=== PATIENT | male | born 1960 | race Caucasian/White ===

== ENCOUNTER → 2019-12-12 11:16 | Outpatient (CLI) | payer BC, SELFPAY ==
--- NOTE | ~2019-12-12 | XR_ITS ---
EXAMINATION: XR lumbar spine 2-3V DATE: 12/12/2019 11:36 INDICATION: Low back pain TECHNIQUE: Anteroposterior and lateral views of the lumbar spine, and cone-down lateral view of the l umbosacral junction were obtained. COMPARISON: 03/28/2017 FINDINGS: There are 3 mm of chronic retrolisthesis of L3 on L4 and 2 mm of chronic retrolisthesis of L4 on L5. There is mild loss of intervertebral disc space height at L5-S1. The vertebral body heights are normal. Small degenerative osteophytes project from the anterior endplates of multiple vertebral bodies. There is no fracture. Moderate facet osteoarthritis is noted at L5-S1. The bowel gas pattern is normal. A moderate volume of colonic stool is present. IMPRESSION: 1. Mild lumbar spondylosis without acute findings or significant interval change. Reviewed, dictated and finalized at location A. TIC PHYSIOTHERAPIST IMPRESSION: 1. Mild lumbar spondylosis without acute findings or significant interval renata corcoran
== END ==
PROVIDERS: PCP Family Medicine; Visit Provider Physician Assistant
DX: M47.896 Other spondylosis, lumbar region (principal)
CPT/HCPCS: 72100

== ENCOUNTER → 2020-07-30 16:29 | Outpatient (CLI) | payer BC, SELFPAY ==
--- NOTE | ~2020-07-30 | XR_ITS ---
EXAMINATION: XR thoracic spine 3V DATE: 07/30/2020 16:54 INDICATION: Dorsalgia, unspecified. TECHNIQUE: 3 views of thoracic spine were obtained. COMPARISON: CT abdomen and pelvis 02/24/2019 FINDINGS: There is 13 degrees levoscoliosis of upper thoracic spine and 10 degrees dextroscoliosis of lower thoracic spine. Vertebral body heights are normal. There are changes of anterior fusion proced ure in cervical spine. There are endplate osteophytes at multiple levels in thoracic spine. Intervert ebral disc heights are normal in thoracic spine. IMPRESSION: 1. Mild thoracic spondylosis. 2. Scoliosis. Reviewed, dictated and finalized at location A.
== END ==
PROVIDERS: PCP Family Medicine; Visit Provider Physician Assistant
DX: M54.9 Dorsalgia, unspecified (principal); M47.814 Spondylosis without myelopathy or radiculopathy, thoracic region; M41.84 Other forms of scoliosis, thoracic region
CPT/HCPCS: 72072

== ENCOUNTER 2020-08-10 12:00 | Emergency (ER) | payer BC, SELFPAY ==
--- NOTE | 2020-08-10 12:31 | ED.BACK ---
HPI - Back Pain/Injury General Chief Complaint: Back Pain/Injury Stated Complaint: back pain Time Seen by Provider: 08/10/20 12:12 History of Present Illness HPI Narrative: Chronic back pain. Worse fr the past few days. Started on prednisone taper by PCP without significnat improvement. Scheduled for MRI i 2 days. Came in today because he had severe pain when tying his shoes. The pain is on the left side at the level of the lower ribs and radiating around to the abdomen. No nausea, vomiting, dysuria, hematuria. Related Data Home Medications Medication Instructions Recorded Confirmed aspirin 81 mg tablet,delayed 81 mg PO DAILY 09/26/19 07/28/20 release cetirizine 10 mg tablet 10 mg PO DAILY 09/26/19 07/28/20 famotidine 20 mg tablet 20 mg PO DAILY 09/26/19 07/28/20 multivitamin 1 tablet PO DAILY 09/26/19 07/28/20 naproxen sodium 220 mg tablet 220 mg PO TID PRN tablet 09/26/19 07/28/20 omega 8-cyq-lia-fish oil 1,000 mg 1 cap PO DAILY 09/26/19 07/28/20 (120 mg-180 mg) capsule Allergies Allergy/AdvReac Type Severity Reaction Status Date / Time Sulfa (Sulfonamide Allergy Unknown Unknown Verified 08/10/20 12:39 Antibiotics) Review of Systems Review of Systems: All systems reviewed & are unremarkable except as noted in HPI and below Constitutional: Constitutional: Denies chills, Denies fever(s) and Denies weakness Cardiovascular: Cardiovascular: Denies chest pain Respiratory: Respiratory: Denies dyspnea Genitourinary: Genitourinary: Denies hematuria and Denies dysuria Musculoskeletal: Musculoskeletal: Reports back pain Neurologic: Denies numbness and Denies weakness [facility] Past Medical History Medical History Crush injury of foot (~1977) Surgical History Surgical History History of arthroscopy (~1996) History of fusion of cervical spine (~1996) History of hemorrhoidectomy (~1999) Family History Family History Sibling Hypertension Father Family history of cardiovascular disease Grandparent Acute myocardial infarction Family history of malignant neoplasm of stomach Mother Family history of malignant neoplasm Family history of pancreatic cancer Social History Social History Smoking status: Never smoker Alcohol intake: current Exam Const: General: no acute distress and alert Orientation/consciousness: patient oriented x3 HENMT: Head: normal to inspection Chest: Chest palpation & inspection: normal inspection of the chest and no tenderness Resp: Effort & Inspection: normal respiratory effort Auscultation: clear to auscultation bilaterally Cardio: Rate: regular rate Rhythm: regular rhythm GI: Other: NDNT : General: Yes no CVA tenderness Back/Spine/Pelvis: Other: No tenderness Neuro: General: patient oriented x3, moves all extremities, no focal motor deficits and CN's II-XI intact bilaterally Speech: normal speech Gait exam (Neuro): Normal gait present Extrem: General: normal to inspection Course Vital Signs Vital signs: Vital Signs Temperature 36.3 C L 08/10/20 12:37 Pulse Rate 75 08/10/20 12:37 Respiratory Rate 20 08/10/20 12:37 Blood Pressure 141/74 H 08/10/20 12:37 Pulse Oximetry 99 08/10/20 12:37 Temperature 36.3 C L 08/10/20 12:37 Pulse Rate 80 08/10/20 13:36 Respiratory Rate 18 08/10/20 13:36 Blood Pressure 122/80 08/10/20 13:36 Pulse Oximetry 99 08/10/20 13:36 MDM - Back Pain/Injury MDM Narrative Medical decision making narrative: Pain consistent with radiculopathy. No indication for emergent imaging. UA negative. Will provide medication for symptomatic relief until he gets his MRI in 2 days. Medical Records Attestation: I reviewed the patient's medical records. Lab Data Attestation:
[2020-08-10 12:37] VITALS: BP 141/74; PULSE 75; RESP 20; TEMP 36.3; O2SAT 99
[2020-08-10] MEDS: CYCLOBENZAPRINE HCL 10 MG TABLET PO (12:37)
[2020-08-10] MEDS: HYDROcodone/acetaminophen (*CRX) 5-325 MG TABLET 1 TAB PO (12:37)
[2020-08-10 12:55] LABS: Add Urine Microscopic? YES; Appearance Urine Clear (Clear); Bilirubin Urine Negative (Negative); Blood Urine Negative (Negative); Color Urine Yellow (Yellow); Glucose Urine UA Negative (Negative); Ketones Urine Negative (Negative); Leukocyte Esterase Ur Negative LEU/UL (Negative); Nitrate Urine Negative (Negative); Protein Urine Negative (Negative); RBC Urine 0-2 /hpf (0-2); Specific Grav Ur 1.012 (1.001-1.035); Urobilinogen Urine Negative mg/dL (<2.0); WBC Urine 0-3 /hpf
[2020-08-10 13:36] VITALS: BP 122/80; PULSE 80; RESP 18; O2SAT 99
== END 2020-08-10 13:37 | disposition home or self-care (01) ==
PROVIDERS: Emergency Provider Emergency Medicine; PCP Family Medicine
DX: M54.6 Pain in thoracic spine (principal); G89.29 Other chronic pain; Z98.1 Arthrodesis status; Z79.82 Long term (current) use of aspirin
CPT/HCPCS: 81001; 99283; A9270

== ENCOUNTER 2020-08-12 14:37 | Outpatient (CLI) | payer BC, SELFPAY ==
--- NOTE | ~2020-08-12 | MR_ITS ---
EXAMINATION: MR thoracic spine wo con DATE: 08/12/2020 15:52 INDICATION: Thoracic back pain. TECHNIQUE: Magnetic resonance imaging (MRI) of the thoracic spine was performed without intravenous c ontrast. Sagittal localizer T1-weighted FSE of the cervical spine was obtained. Thoracic spine sequen pernell included sagittal T2-weighted FSE, sagittal T1-weighted FSE, sagittal T2-weighted FS FSE, and axi al T2-weighted FSE. COMPARISON: Thoracic spine radiographs 07/30/2020 FINDINGS: There is 10 degrees dextroscoliosis of thoracic spine. Vertebral body heights are normal. T here is mildly decreased disc height at T5-T6, T9-T10, T10-T11, and T11-T12. At T2-T3, there is a ezra tral extrusion with mild central canal stenosis. At T3-T4, there is a central extrusion with mild ezra tral canal stenosis. At T5-T6, there is a left central extrusion with mild central canal stenosis. At T7-T8, there is a left central extrusion with mild central canal stenosis. At T8-T9, there is a left central protrusion with mild central canal stenosis. At T9-T10, there is a left central and foramina l zone protrusion with mild central canal stenosis. At T10-T11, there is a left central extrusion wit h mild central canal stenosis. There is multilevel facet joint osteoarthritis, severe at many levels. On the right, there is mild neural foraminal stenosis at T1-T2, T2-T3, T3-T4, T4-T5, T5-T6, T6-T7, a nd T11-T12. On the left, there is mild neural foraminal stenosis at T1-T2, T2-T3, T3-T4, T5-T6, T6-T7 , T7-T8, T8-T9, T9-T10, T10-T11, and T11-T12. The spinal cord signal intensity is normal. IMPRESSION: 1. Mild thoracic spondylosis. 2. Thoracic dextroscoliosis. Reviewed, dictated and finalized at location A.
== END 2020-08-12 14:38 | disposition home or self-care (01) ==
PROVIDERS: PCP Family Medicine; Visit Provider Physician Assistant
DX: M47.894 Other spondylosis, thoracic region (principal)
CPT/HCPCS: 72146

== ENCOUNTER → 2022-04-14 08:40 | Outpatient (CLI) | payer BC, SELFPAY ==
--- NOTE | ~2022-04-14 | MR_ITS ---
EXAMINATION: MR lumbar spine wo con DATE: 04/14/2022 09:13 INDICATION: Lumbar radiculopathy. Low back pain. Bilateral leg pain. TECHNIQUE: Magnetic resonance imaging (MRI) of the lumbar spine was performed without intravenous con trast. Sequences included sagittal T2-weighted FSE, sagittal T2-weighted FS FSE, sagittal T1-weighted FSE, and axial T2-weighted FSE. COMPARISON: Lumbar spine radiographs 12/12/2019 FINDINGS: There is 4 mm retrolisthesis of L3 on L4. Vertebral body heights are normal. There is mildl y decreased disc height at L3-L4 and L4-L5. The distal spinal cord signal intensity is normal. The co nus medullaris is at L1. The following disc levels are specifically discussed: L1-L2: The disc does not extend beyond the endplate margin. There is mild bilateral facet joint osteo arthritis. There is no neural foraminal stenosis. There is no central canal stenosis. L2-L3: There is a right foraminal protrusion. There is mild bilateral facet joint osteoarthritis. The re is mild right neural foraminal stenosis. There is no central canal stenosis. L3-L4: The disc is bulging and has an annular fissure. There is mild bilateral facet joint osteoarthr itis. There is moderate bilateral neural foraminal stenosis. There is mild central canal stenosis. Th ere is moderate stenosis of the lateral recesses. L4-L5: The disc is bulging. There is mild bilateral facet joint osteoarthritis. There is moderate ivon ateral neural foraminal stenosis. There is mild central canal stenosis. L5-S1: The disc is bulging and has an annular fissure. There is severe bilateral facet joint osteoart hritis. There is moderate bilateral neural foraminal stenosis. There is mild central canal stenosis. IMPRESSION: 1. Moderate lumbar spondylosis. Reviewed, dictated and finalized at location A.
== END ==
PROVIDERS: PCP Family Medicine; Visit Provider Physician Assistant
DX: M47.817 Spondylosis without myelopathy or radiculopathy, lumbosacral region (principal); M48.07 Spinal stenosis, lumbosacral region
CPT/HCPCS: 72148

== ENCOUNTER → 2022-08-01 15:12 | Outpatient (CLI) | payer BC, SELFPAY ==
--- NOTE | ~2022-08-01 | CT_ITS ---
EXAMINATION: CT abdomen pelvis w con DATE: 08/01/2022 15:39 INDICATION: Abdominal and rectal pain, change in bowel movements. Constipation. TECHNIQUE: Computed tomography (CT) of the abdomen and pelvis was performed with 100 CC Omnipaque 350 intravenous contrast. Automated exposure control and iterative reconstruction technique were employe d. Exam dose: 627.54 mGy-cm total exam DLP. COMPARISON: 02/24/2019 CT abdomen pelvis FINDINGS: The lung bases are clear of infiltrate or consolidation. Normal heart size. No pericardial or pleural effusion. Stable subtle small area of hypoattenuation of the hepatic dome, not significantly changed since 02/24, likely a small cyst, but too small to definitively characterize. No other hepatic space-occupy ing mass lesion is detected. Spleen measures within upper normal range at approximately 12.5 cm vertical dimension. No pancreatic mass lesion or calcification or ductal dilatation. The gallbladder is contracted. No bile duct dilatation. Normal morphology of the adrenal glands. No renal mass lesion or urinary tract calculus or hydrourete ronephrosis. The urinary bladder is unremarkable. Prostate enlargement and minimal calcification. There is atherosclerotic calcification but normal caliber of the abdominal aorta. No intraperitoneal or retroperitoneal or pelvic mass lesion or adenopathy or ascites. No bowel obstruction, bowel wall thickening, pneumatosis or intraperitoneal free air is detected. Very small fat-containing umbilical hernia. Included skeletal structures are unremarkable, without evidence of suspicious osteolytic or osteoblas tic lesion. IMPRESSION: Prostate enlargement and minimal calcification Stable small probable hepatic dome cyst Atherosclerotic change of the abdominal aorta and iliac arteries; no aneurysm Reviewed, dictated and finalized at Location A. Reviewed, dictated and finalized at location B.
[2022-08-01 15:29] LABS: Estimated Glomerular Filt Rate > 60
== END ==
PROVIDERS: PCP Family Medicine; Visit Provider Physician Assistant
DX: R10.9 Unspecified abdominal pain (principal); K62.89 Other specified diseases of anus and rectum; N40.0 Benign prostatic hyperplasia without lower urinary tract symptoms; I70.0 Atherosclerosis of aorta
CPT/HCPCS: 74177; Q9967

== ENCOUNTER → 2023-05-09 08:48 | Outpatient (CLI) | payer MEDICARE, SELFPAY ==
--- NOTE | ~2023-05-09 | US_ITS ---
Abdominal Sonogram: Real-time sonographic imaging of the abdomen was performed. Clinical History: Abdominal pain Findings: The liver appears normal with no evidence of mass lesion or bile duct dilatation. Main por catarina vein demonstrates normal direction of flow. The spleen is normal in size without evidence of foca l lesion. The gallbladder is well distended, and appears normal with no evidence of gallstone or wal l thickening. The common bile duct measures 3 mm. The visualized pancreas, aorta, and IVC are unrema rkable. The right kidney measures 10.9 cm in length and the left kidney measures 11.9 cm. There is no hydronephrosis or renal calculus. Impression: Unremarkable abdominal ultrasound. Reviewed, dictated and finalized at location . Impression: Unremarkable abdominal ultrasound.
== END ==
PROVIDERS: PCP Family Medicine; Visit Provider Nurse Practitioner Family
DX: R10.9 Unspecified abdominal pain (principal); K21.9 Gastro-esophageal reflux disease without esophagitis; R10.811 Right upper quadrant abdominal tenderness
CPT/HCPCS: 76700

== ENCOUNTER 2023-07-19 03:08 | Day surgery (SDC) | payer MEDICARE, SELFPAY ==
[2023-07-06 09:43] VITALS: BMI 22.4
[2023-07-19 07:41] VITALS: BP 120/69; PULSE 60; RESP 18; TEMP 36.2; O2SAT 100
[2023-07-19] MEDS: LACTATED RINGERS 1,000 ML 150 ML IV CONT (07:49)
--- NOTE | 2023-07-19 08:21 | PM.HPGS ---
History of Present Illness History of Present Illness Consent: Risks, benefits, and alternatives have been discussed and questions answered. Patient agrees to proceed with procedure. Chief complaint: GERD, abdom.pain, nausea Narrative: Jb Yoo is a 63 year old male Presents for EGD. Patient complains of nausea and epigastric discomfort for the last several months. He has been on omeprazole 40mg p.o. daily with no specific change in symptoms. He does feel bowel bill is a erupting from his stomach into his chest. Patient denies any bleeding. He has had no weight loss. Family history noncontributory. Patient presents today for EGD to assess discomfort more thoroughly. Review of Systems Review of Systems: Review of systems noncontributory. [facility] Past Medical History Medical History Abdominal pain 6.28.23 US normal EGD pending 9.7.23 Central retinal artery occlusion, unspecified eye Crush injury of foot (~1977) Knee pain, acute Rectal pain Seborrheic keratoses Stricture of artery Tendonitis of shoulder Surgical History Surgical History History of arthroscopy (~1996) History of fusion of cervical spine (~1996) History of hemorrhoidectomy (~1999) Family History Family History Sibling Hypertension Father Family history of cardiovascular disease Grandparent Acute myocardial infarction Family history of malignant neoplasm of stomach Mother Family history of malignant neoplasm Family history of pancreatic cancer Social History Social History Smoking status: Never smoker Alcohol intake: current Drinks per week: 6 Substance use: never Substance use type: does not use Lack of Transportation: No Lack of Food: Never True Current Housing: I Have Housing Concerned About Future Housing: No Difficulty Paying Gas/Electric Bills: No Difficulty Paying for Meds: No Currently Unemployed: No Education: Associate Degree Difficulty w/ Childcare or Family Care: No Living arrangements: with family Spiritual care concerns: No Meds Home Medications and Allergies Home Medications Medication Instructions Recorded Confirmed Type aspirin 81 mg tablet,delayed 81 mg PO DAILY 09/26/19 07/06/23 History release multivitamin 1 tablet PO DAILY 09/26/19 07/06/23 History omega 3-pzg-ljw-fish oil 1,000 mg 1 cap PO DAILY 09/26/19 07/06/23 History (120 mg-180 mg) capsule (Fish Oil) mecobalamin (vitamin B12) 1,000 1,000 mcg PO DAILY 05/23/21 07/06/23 History mcg chewable tablet finasteride 5 mg tablet 5 mg PO DAILY #90 tabs 07/06/22 07/06/23 Rx tamsulosin 0.4 mg capsule See Rx Instructions .Route 04/16/23 07/06/23 Rx .COMPLEX #180 caps atorvastatin 10 mg tablet See Rx Instructions .Route 05/23/23 07/06/23 Rx .COMPLEX #90 tabs omeprazole 40 mg capsule,delayed See Rx Instructions .Route 06/12/23 07/06/23 Rx release .COMPLEX #90 caps Calcium + Vitamin D 1,200 mg PO DAILY 07/06/23 07/06/23 History magnesium oxide 400 mg PO DAILY 07/06/23 07/06/23 History Allergies Allergy/AdvReac Type Severity Reaction Status Date / Time Sulfa (Sulfonamide Allergy Unknown Unknown Verified 07/19/23 07:40 Antibiotics) Vital Signs Vital Signs - 24 hr 07/19/23 07:41 Temperature 97.2 F L Pulse Rate 60 Respiratory Rate 18 Blood Pressure 120/69 Pulse Oximetry 100 Oxygen Delivery Room Air Exam Narrative: Physical exam reveals patient to be alert. Vital signs stable. HEENT exam is unremarkable. Patient is anicteric. Lungs are clear to auscultation and percussion. Heart is without murmur or extra sounds. Abdomen bowel sounds are present soft nontender with no hepatosplenomegaly. Digital external rectal exam normal. Assessment and Plan Assess
--- NOTE | 2023-07-19 09:10 | WPDANESEPPF ---
Anes - Initial Pre Proc Eval Procedure: Operation Date: 07/19/23 09:00 Proposed Procedures p Esophagogastroduodenoscopy - Jamel Temple MD Date/Time: 07/19/23 09:10 Surgeon: Jamel Temple MD Pre Op Diagnosis: GERD, abdom.pain, nausea Patient Data Age: 63 Gender: M Height: 1.85 m Weight: 75.8 kg Last Vital Signs Temp 97.2 F L 07/19/23 07:41 Pulse 60 07/19/23 07:41 Resp 18 07/19/23 07:41 BP 120/69 07/19/23 07:41 Pulse Ox 100 07/19/23 07:41 O2 Del Method Room Air 07/19/23 07:41 Allergies Allergy/AdvReac Type Severity Reaction Status Date / Time Sulfa (Sulfonamide Allergy Unknown Unknown Verified 07/19/23 07:40 Antibiotics) Home Medications Medication Instructions Recorded Confirmed Type aspirin 81 mg tablet,delayed 81 mg PO DAILY 09/26/19 07/06/23 History release multivitamin 1 tablet PO DAILY 09/26/19 07/06/23 History omega 5-mjm-nrr-fish oil 1,000 mg 1 cap PO DAILY 09/26/19 07/06/23 History (120 mg-180 mg) capsule (Fish Oil) mecobalamin (vitamin B12) 1,000 1,000 mcg PO DAILY 05/23/21 07/06/23 History mcg chewable tablet finasteride 5 mg tablet 5 mg PO DAILY #90 tabs 07/06/22 07/06/23 Rx tamsulosin 0.4 mg capsule See Rx Instructions .Route 04/16/23 07/06/23 Rx .COMPLEX #180 caps atorvastatin 10 mg tablet See Rx Instructions .Route 05/23/23 07/06/23 Rx .COMPLEX #90 tabs omeprazole 40 mg capsule,delayed See Rx Instructions .Route 06/12/23 07/06/23 Rx release .COMPLEX #90 caps Calcium + Vitamin D 1,200 mg PO DAILY 07/06/23 07/06/23 History magnesium oxide 400 mg PO DAILY 07/06/23 07/06/23 History Patient hx anesthesia problems: none Family hx anesthesia problems: none Results Review: All pre-operative results and documents have been reviewed as part of the pre-operative evaluation. [facility] Past Medical History Medical History Abdominal pain 6.28.23 US normal EGD pending 9.7.23 Central retinal artery occlusion, unspecified eye Crush injury of foot (~1977) Knee pain, acute Rectal pain Seborrheic keratoses Stricture of artery Tendonitis of shoulder Surgical History Surgical History History of arthroscopy (~1996) History of fusion of cervical spine (~1996) History of hemorrhoidectomy (~1999) Family History Family History Sibling Hypertension Father Family history of cardiovascular disease Grandparent Acute myocardial infarction Family history of malignant neoplasm of stomach Mother Family history of malignant neoplasm Family history of pancreatic cancer Social History Social History Smoking status: Never smoker Alcohol intake: current Drinks per week: 6 Substance use: never Substance use type: does not use Lack of Transportation: No Lack of Food: Never True Current Housing: I Have Housing Concerned About Future Housing: No Difficulty Paying Gas/Electric Bills: No Difficulty Paying for Meds: No Currently Unemployed: No Education: Associate Degree Difficulty w/ Childcare or Family Care: No Living arrangements: with family Spiritual care concerns: No Anes - Eval Final PreProcedure Day of Procedure 07/19/23 09:10 Patient weight: normal Heart: regular rate and rhythm Lungs: clear to auscultation Airway: Mallampati scale class II Neurological: alert and oriented Last oral intake: >/= 8 hours ASA classification: II Emergent: no Anesthetic plan: proceed Anesthesia type and monitoring: general GIVS and standard monitoring Results Review: All pre-operative results and documents have been reviewed as part of the pre-operative evaluation. Informed Consent: The patient's anesthetic plan and its attendant risks and benefits were discussed with the patient/family/POA. Questions we
[2023-07-19 09:16] VITALS: BP 122/72; PULSE 51; RESP 14; O2SAT 99
[2023-07-19 09:26] VITALS: BP 129/83; PULSE 54; RESP 13; O2SAT 99
[2023-07-19 09:36] VITALS: BP 140/79; PULSE 50; RESP 14; O2SAT 99
== END 2023-07-19 09:46 | disposition home or self-care (01) ==
PROVIDERS: PCP Family Medicine; Visit Provider Internal Medicine Gastroenterology
PROC: 0DJ08ZZ Inspection of Upper Intestinal Tract, Via Natural or Artificial Opening Endoscopic (ICD-10-PCS; CPT 43235; principal; 2023-07-19 09:00)
DX: R11.0 Nausea (principal); R10.13 Epigastric pain; Z79.82 Long term (current) use of aspirin
CPT/HCPCS: 43239; 87081; J2704; J7120

== ENCOUNTER 2023-09-08 22:56 | Emergency (ER) | payer MEDICARE, SELFPAY ==
--- NOTE | ~2023-09-08 | CT_ITS ---
EXAMINATION: CT brain wo con DATE: 09/09/2023 01:45 INDICATION: Dizziness TECHNIQUE: Computed tomography (CT) of the head was performed without intravenous contrast. The mA wa s adjusted according to patient size. Iterative reconstruction technique was employed. Exam dose: 60 5.33 mGy-cm total exam DLP. COMPARISON: 06/09/2015 MRA brain 05/21/2009 MRI brain FINDINGS: There are couple of small lucencies of the head of the left caudate nucleus consistent with chronic lacunar infarcts. No intracranial mass lesion or hemorrhage or cerebrovascular accident, midline shift or mass effect i s noted otherwise. Normal ventricular size. No subdural or epidural hematoma. Minimal mucoperiosteal thickening of the maxillary sinuses and mild soft tissue thickening the ethmoi d air cells. The paranasal sinuses and mastoid air cells otherwise are normally developed and aerated . No fracture or bone destruction of the cranial vault. IMPRESSION: Small chronic lacunar infarcts of left caudate nucleus; no acute intracranial finding Reviewed, dictated and finalized at Location A. Reviewed, dictated and finalized at location A. IMPRESSION: Small chronic lacunar infarcts of left caudate nucleus; no acute i ntracranial finding
--- NOTE | ~2023-09-08 | CT_ITS ---
EXAMINATION: CTA brain carotid DATE: 09/09/2023 01:45 INDICATION: Dizziness. History of carotid artery stenosis. TECHNIQUE: Computed tomography (CT) of the head was performed without intravenous contrast. The mA wa s adjusted according to patient size. Iterative reconstruction technique was employed. Exam dose: 12 74.10 mGy-cm total exam DLP. COMPARISON: None FINDINGS: There is severe stenosis/near occlusion at the origin of the right subclavian artery. There is no significant stenosis of the common carotid arteries, carotid bulbs, internal carotid nelly merna or intracranial carotid circulation. Dominant left vertebral artery. No vertebral or basilar artery occlusion is evident. No intracranial aneurysm is noted. 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 Reviewed, dictated and finalized at location A. IMPRESSION: Severe stenosis/nearly complete occlusion at the origin of the rig ht subclavian artery No significant stenosis of the carotid or vertebrobasilar artery circulation or intracranial aneurysm
[2023-09-08 23:46] VITALS: BP 162/83; PULSE 55; RESP 18; TEMP 36.5; O2SAT 100
--- NOTE | 2023-09-09 00:17 | ED_ITS ---
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 Patient is aware of this and has been present in the past. Discussed potentially subclavian steal syndrome with him and he was offered transfer for vascular surgery evaluation but he would rather follow up with his vascular surgeon on his own. He is completely asymptomatic at this point and is happy going home. Discussed return precautions and agrees. HPI - Dizziness General Chief Complaint: Dizziness <Thien Serrato PA-C - Last Filed: 09/09/23 17:39> Stated Complaint: shaky all day , dizziness <Thien Serrato PA-C - Last Filed: 09/09/23 17:39> Time Seen by Provider: 09/08/23 23:25 <JENNIFER Archer Last Filed: 09/09/23 17:39> Source: patient <JENNIFER Archer Last Filed: 09/09/23 17:39> Mode of arrival: ambulatory <Thien Serrato PA-C - Last Filed: 09/09/23 17:39> Limitations: no limitations <Thien Serrato PA-C - Last Filed: 09/09/23 17:39> History of Present Illness HPI Narrative: This is a 63-year-old male who presents to the ED with chief complaint of vertigo symptoms for the past day. Reports symptoms actually started last night where he was starting to have feelings of the room spinning. Reports that it was worsened when he would get up from standing position. Denies any worsening with head turning or certain head position. He says it has been continuous since onset. Reports that he had an episode of vertigo several years ago that was much worse than this. He has not tried taking any medications for this prior to arrival. Denies any numbness, weakness, speech change, vision change, tinnitus or hearing changes. Denies fevers, chills, neck pain, headache, syncope, head trauma or any falls. <Thien Serrato PA-C - Last Filed: 09/09/23 17:39> Related Data Home Medications: Home Medications Medication Instructions Recorded Confirmed aspirin 81 mg tablet,delayed 81 mg PO DAILY 09/26/19 08/02/23 release multivitamin 1 tablet PO DAILY 09/26/19 08/02/23 omega 2-fgi-ewb-fish oil 1,000 mg 1 cap PO DAILY 09/26/19 08/02/23 (120 mg-180 mg) capsule (Fish Oil) mecobalamin (vitamin B12) 1,000 1,000 mcg PO DAILY 05/23/21 08/02/23 mcg chewable tablet Calcium + Vitamin D 1,200 mg PO DAILY 07/06/23 08/02/23 magnesium oxide 400 mg PO DAILY 07/06/23 08/02/23 <Thien Serrato PA-C - Last Filed: 09/09/23 17:39> Allergies/Adverse Reactions: Allergies Allergy/AdvReac Type Severity Reaction Status Date / Time Sulfa (Sulfonamide Allergy Unknown Unknown Verified 09/09/23 00:56 Antibiotics) <Thien Serrato PA-C - Last Filed: 09/09/23 17:39> Review of Systems Review of Systems: All systems as dictated in HPI <Thien Serrato PA-C - Last Filed: 09/09/23 17:39> [facility] Past Medical History Medical History: Medical History Abdominal pain 6.28.23 US normal EGD pending 9.7.23 Central retinal artery occlusion, unspecified eye Crush injury of foot (~1977) Knee pain, acute Rectal pain Seborrheic keratoses Stricture of artery Tendonitis of shoulder <Thien Serrato PA-C - Last Filed: 09/09/23 17:39> Surgical History Surgical History: Surgical History (Reviewed 06/26/23 @
--- NOTE | 2023-09-09 00:17 | ED.DIZZY ---
HPI - Dizziness General Chief Complaint: Dizziness <Thien Serrato PA-C - Last Filed: 09/09/23 17:39> Stated Complaint: shaky all day , dizziness <Thien Serrato PA-C - Last Filed: 09/09/23 17:39> Time Seen by Provider: 09/08/23 23:25 <Thien Serrato PA-C - Last Filed: 09/09/23 17:39> Source: patient <Thien Serrato PA-C - Last Filed: 09/09/23 17:39> Mode of arrival: ambulatory <hTien Serrato PA-C - Last Filed: 09/09/23 17:39> Limitations: no limitations <Thien Serrato PA-C - Last Filed: 09/09/23 17:39> History of Present Illness HPI Narrative: This is a 63-year-old male who presents to the ED with chief complaint of vertigo symptoms for the past day. Reports symptoms actually started last night where he was starting to have feelings of the room spinning. Reports that it was worsened when he would get up from standing position. Denies any worsening with head turning or certain head position. He says it has been continuous since onset. Reports that he had an episode of vertigo several years ago that was much worse than this. He has not tried taking any medications for this prior to arrival. Denies any numbness, weakness, speech change, vision change, tinnitus or hearing changes. Denies fevers, chills, neck pain, headache, syncope, head trauma or any falls. <Thien Serrato PA-C - Last Filed: 09/09/23 17:39> Related Data Home Medications: Home Medications Medication Instructions Recorded Confirmed aspirin 81 mg tablet,delayed 81 mg PO DAILY 09/26/19 08/02/23 release multivitamin 1 tablet PO DAILY 09/26/19 08/02/23 omega 3-xdq-gao-fish oil 1,000 mg 1 cap PO DAILY 09/26/19 08/02/23 (120 mg-180 mg) capsule (Fish Oil) mecobalamin (vitamin B12) 1,000 1,000 mcg PO DAILY 05/23/21 08/02/23 mcg chewable tablet Calcium + Vitamin D 1,200 mg PO DAILY 07/06/23 08/02/23 magnesium oxide 400 mg PO DAILY 07/06/23 08/02/23 <Thien Serrato PA-C - Last Filed: 09/09/23 17:39> Allergies/Adverse Reactions: Allergies Allergy/AdvReac Type Severity Reaction Status Date / Time Sulfa (Sulfonamide Allergy Unknown Unknown Verified 09/09/23 00:56 Antibiotics) <Thien Serrato PA-C - Last Filed: 09/09/23 17:39> Review of Systems Review of Systems: All systems as dictated in HPI <Thien Serrato PA-C - Last Filed: 09/09/23 17:39> [facility] Past Medical History Medical History: Medical History Abdominal pain 6. US normal EGD pending 07.19.23 Central retinal artery occlusion, unspecified eye Crush injury of foot (~1977) Knee pain, acute Rectal pain Seborrheic keratoses Stricture of artery Tendonitis of shoulder <Thein Serrato PA-C - Last Filed: 09/09/23 17:39> Surgical History Surgical History: Surgical History History of arthroscopy (~1996) History of fusion of cervical spine (~1996) History of hemorrhoidectomy (~1999) <Thien Serrato PA-C - Last Filed: 09/09/23 17:39> Family History Family History: Family History Sibling Hypertension Father Family history of cardiovascular disease Grandparent Acute myocardial infarction Family history of malignant neoplasm of stomach Mother Family history of malignant neoplasm Family history of pancreatic cancer <JENNIFER Archer Last Filed: 09/09/23 17:39> Social History Social History: Social History Smoking status: Never smoker Alcohol intake: current Drinks per week: 6 Substance use: never Substance use type: does not use Lack of Transportation: No Lack of Food: Never True Current Housing: I Have Housing Concerned About Future Housing: No Difficulty Paying Gas/Electric Bills: No Difficulty Paying for Meds: No Currently Unemployed: No Educat
--- NOTE | 2023-09-09 00:21 | ECG_ITS ---
Measurements Intervals [place] Rate: 52 P: 63 MO: 217 QRS: 56 QRSD: 96 T: 72 QT: 412 QTc: 385 Interpretive Statements SINUS BRADYCARDIA WITH FIRST DEGREE AV BLOCK INCOMPLETE RIGHT BUNDLE BRANCH BLOCK BORDERLINE ECG NO PREVIOUS ECG AVAILABLE FOR COMPARISON Electronically Signed On 09-09-2023 13:41:53 CDT by Nolan An M.D.
[2023-09-09] MEDS: SODIUM CHLORIDE 0.9% IV 1,000 ML 999 ML IV CONT (00:54)
[2023-09-09] MEDS: diphenhydrAMINE HCl INJ 50 MG/ML VIAL 25 MG IV PUSH (00:54)
[2023-09-09 00:58] LABS: Appearance Urine Clear (Clear); Bilirubin Urine Negative (Negative); Blood Urine Negative (Negative); Color Urine Yellow (Yellow); Glucose Urine UA Negative (Negative); Ketones Urine Negative (Negative); Leukocyte Esterase Ur Negative LEU/UL (Negative); Nitrate Urine Negative (Negative); Protein Urine Negative (Negative); Urobilinogen Urine 0.2 mg/dL (<2.0)
[2023-09-09 01:00] LABS: Add Urine Microscopic? NO
[2023-09-09 01:09] LABS: Alanine Aminotransferase 28 U/L (6-50); Albumin Level 3.9 g/dL (3.5-5.1); Alkaline Phosphatase 70 U/L (38-126); Anion Gap 6 mmol/L (8-16); Aspartate Amino Transferase 28 U/L (17-59); Bilirubin,Total 0.6 mg/dL (0.2-1.3); Blood Urea Nitrogen 15 mg/dL (9-20); Calcium 8.8 mg/dL (8.4-10.2); Carbon Dioxide 26 mmol/L (22-30); Chloride 107 mmol/L (98-107); Estimated CRCL calculation 99 ml/min; Estimated Glomerular Filt Rate > 60; Glucose 97 mg/dL (65-110); Potassium 3.8 mmol/L (3.4-5.0); Sodium 139 mmol/L (137-145)
[2023-09-09 01:21] LABS: Basophils Percent Auto 0.4 % (0.2-1.2); Eosinophils Absolute Auto 0.2 K/mm3 (0-0.3); Eosinophils Percent Auto 4.1 % (0-4.4); Hematocrit 43.5 % (42.0-52.0); Hemoglobin 14.4 g/dL (14.0-18.0); Immature Granulocyte Absolute 0.01 K/mm3 (0.00-0.031); Immature Granulocyte Percent A 0.2 % (0-0.5); Immature Platelet Fraction Pct 4.7 % (0.9-11.2); Lymphocytes Absolute Auto 1.44 K/mm3 (0.9-3.2); Lymphocytes Percent Auto 28.3 % (18.3-44.2); Mean Corpuscular HGB Conc 33.1 g/dl (32-36); Mean Corpuscular Volume 93.5 fl (80-100); Monocytes Absolute Auto 0.5 K/mm3 (0.1-0.6); Neutrophils Absolute Auto 2.9 K/mm3 (1.3-6.7); Platelet Count Result 132 k/mm3 (150-375); Red Blood Count 4.65 M/mm3 (4.6-6.20); Red Cell Distribution Width 12.1 % (11.5-14.5); White Blood Count 5.1 K/mm3 (4.5-10.0)
[2023-09-09] MEDS: METOCLOPRAMIDE HCL INJ 10 MG/2 ML VIAL IV PUSH (02:02)
[2023-09-09 04:47] VITALS: BP 118/76
[2023-09-09 04:48] VITALS: BP 132/86
[2023-09-09 05:15] VITALS: BP 138/84; PULSE 68; RESP 15; O2SAT 100
== END 2023-09-09 05:16 | disposition home or self-care (01) ==
PROVIDERS: Emergency Provider Physician Assistant; PCP Family Medicine
DX: I70.8 Atherosclerosis of other arteries (principal); R42 Dizziness and giddiness
CPT/HCPCS: 36415; 70450; 70496; 70498; 80053; 81003; 85025; 85055; 93005; 96361; 96374; 96375; 99284; J1200; J2765; J7030; Q9967

== ENCOUNTER 2024-01-08 14:05 | Outpatient (CLI) | payer MEDICARE, SELFPAY ==
--- NOTE | ~2024-01-08 | US_ITS ---
EXAMINATION: US arterial ankle brachial ind DATE: 01/08/2024 14:50 INDICATION: Stricture of artery. Claudication. TECHNIQUE: Segmental pressures and plethysmographic and Doppler waveforms of the brachial and lower e xtremity arteries were obtained. COMPARISON: None. FINDINGS: Right and left brachial artery pressures of 112 mm Hg and 91 mm Hg, respectively, are concordant (nor mal difference <= 30 mmHg). The right ankle-brachial index (ERIC) is 1.33 (normal >= 0.9-1.0). The right great toe-brachial index (TBI) is 0.69 (normal >= 0.65). Arterial Doppler waveforms triphasic with brisk systolic upstrokes at both right posterior tibial and dorsalis pedis arteries. The left ERIC is 1.33. The left TBI is 0.48. Arterial Doppler waveforms are triphasic with brisk systo lic upstrokes at both left posterior tibial and dorsalis pedis arteries. IMPRESSION: 1. No arterial occlusive disease to the right lower limb with normal right ERIC and TBI. 2. Arterial occlusive disease to the left lower limb with normal left ERIC but mildly decreased left T BI. Reviewed, dictated and finalized at location B. [facility] IMPRESSION: 1. No arterial occlusive disease to the right lower limb with normal right ERIC and TBI. 2. Arterial occlusive disease to the left lower limb with normal left ERIC but m ildly decreased left TBI.
== END 2024-01-08 14:06 | disposition home or self-care (01) ==
PROVIDERS: PCP Family Medicine; Visit Provider Physician Assistant
DX: I77.1 Stricture of artery (principal)
CPT/HCPCS: 93922

== ENCOUNTER 2024-05-06 08:16 | Outpatient (CLI) | payer MEDICARE, SELFPAY ==
[2024-05-06 12:26] LABS: Basophils Percent Auto 0.5 % (0.2-1.2); Eosinophils Absolute Auto 0.2 K/mm3 (0-0.3); Eosinophils Percent Auto 3.4 % (0-4.4); Hematocrit 47.9 % (42.0-52.0); Hemoglobin 15.9 g/dL (14.0-18.0); Immature Granulocyte Absolute 0.03 K/mm3 (0.00-0.031); Immature Granulocyte Percent A 0.5 % (0-0.5); Lymphocytes Absolute Auto 1.96 K/mm3 (0.9-3.2); Lymphocytes Percent Auto 30.1 % (18.3-44.2); Mean Corpuscular HGB Conc 33.2 g/dl (32-36); Mean Corpuscular Hemoglobin 31.5 pg (26-34); Mean Corpuscular Volume 94.9 fl (80-100); Mean Platelet Volume 10.7 fl (7.4-10.4); Monocytes Absolute Auto 0.5 K/mm3 (0.1-0.6); Monocytes Percent Auto 7.8 % (2.6-8.5); Neutrophils Absolute Auto 3.8 K/mm3 (1.3-6.7); Neutrophils Percent Auto 57.7 % (45.5-73.1); Platelet Count Result 122 k/mm3 (150-375); Red Blood Count 5.05 M/mm3 (4.6-6.20); Red Cell Distribution Width 12.8 % (11.5-14.5); White Blood Count 6.5 K/mm3 (4.5-10.0)
[2024-05-06 12:41] LABS: Alanine Aminotransferase 29 U/L (6-50); Alkaline Phosphatase 72 U/L (38-126); Anion Gap 4 mmol/L (4-12); Aspartate Amino Transferase 53 U/L (17-59); Bilirubin,Total 1.1 mg/dL (0.2-1.3); Blood Urea Nitrogen 21 mg/dL (9-20); Calcium 8.9 mg/dL (8.4-10.2); Carbon Dioxide 27 mmol/L (22-30); Chloride 108 mmol/L (98-107); Cholesterol 188 mg/dL (0-200); Estimated Glomerular Filt Rate > 60; Glucose 82 mg/dL (65-110); HDL Direct 45 mg/dL; Potassium 3.7 mmol/L (3.4-5.0); Sodium 139 mmol/L (137-145); Triglycerides 154 mg/dL (<150)
[2024-05-06 12:53] LABS: LDL Cholesterol Direct 117 mg/dL
[2024-05-06 13:12] LABS: Prostate Specific Antigen 0.5 ng/mL (< OR = 4.0)
[2024-05-06 14:02] LABS: Folic Acid > 20.0 ng/mL (2.76->20)
== END 2024-05-06 08:17 | disposition home or self-care (01) ==
LOC: ANHGOSHLAB 08:18
PROVIDERS: PCP Family Medicine; Visit Provider Student in an Organized Health Care Education/Training Program
DX: E78.2 Mixed hyperlipidemia (principal); I65.22 Occlusion and stenosis of left carotid artery; K21.9 Gastro-esophageal reflux disease without esophagitis; Z79.899 Other long term (current) drug therapy; Z12.5 Encounter for screening for malignant neoplasm of prostate; R41.3 Other amnesia; K21.00 Gastro-esophageal reflux disease with esophagitis, without bleeding
CPT/HCPCS: 36415; 80053; 80061; 82607; 82746; 84153; 84443; 85025; G0103

== ENCOUNTER 2024-10-06 14:27 | Outpatient (CLI) | payer MEDICARE, SELFPAY ==
--- NOTE | ~2024-10-06 | XR_ITS ---
EXAM: XR hand LT min 3V DATE: 10/06/2024 14:37 HISTORY: M79.646 - Pain in unspecified finger(s) . COMPARISON: None available. FINDINGS: Normal mineralization. No acute fracture or dislocation. Old ulnar styloid fracture fragme nt. No lytic or blastic lesion. Mild scattered degenerative changes. No erosion or periosteal change. 3 mm radiopaque foreign body along the medial aspect of the first metacarpal head. IMPRESSION: Mild polyarticular osteoarthritis. 3 mm radiopaque foreign body along the medial aspect o f the first metacarpal head Reviewed, dictated and finalized at location K. [employer] IMPRESSION: Mild polyarticular osteoarthritis. 3 mm radiopaque foreign body luis ng the medial aspect of the first metacarpal head
== END 2024-10-06 14:28 | disposition home or self-care (01) ==
LOC: GOSHIMG 14:28
PROVIDERS: PCP Family Medicine; Visit Provider Student in an Organized Health Care Education/Training Program
DX: S60.459A Superficial foreign body of unspecified finger, initial encounter (principal); X58.XXXA Exposure to other specified factors, initial encounter; M79.646 Pain in unspecified finger(s)
CPT/HCPCS: 73130

== ENCOUNTER 2024-12-30 08:50 | Outpatient (CLI) | payer MEDICARE, SELFPAY ==
--- OUTSIDE RECORDS SUMMARY | 2024-12-30 08:55 | XMS_ITS | Referral Summary ---
Author Organization [facility] Address [address] [place] [id number] Care Team Providers Care Fire Tower Keeper Name Role Phone Radha Alvarez MD Primary Care Provider + Encounters Date Type Department Care Team Description 10/22/2024 Orders Only [facility] Medical [facility] Vascular and Vein Surgery [address] [place] [address] [address] [place] [id number] Torin Brady MD Bilateral carotid artery stenosis (Primary Dx); Subclavian artery occlusive syndrome 10/22/2024 11:00 AM COGNOS ANALYST Office Visit [facility] Vascular and Vein Surgery [address] [place] [address] [address] [place] [address] Zoey Ramos NP Carotid stenosis, left (Primary Dx); Innominate artery stenosis (CMS/HCC) (HCC); Other hyperlipidemia 10/22/2024 9:55 AM COGNOS ANALYST - 10/22/2024 11:59 PM COGNOS ANALYST Hospital Encounter [facility] [address] [place] [address] [address] [place] [address] Bilateral carotid artery stenosis Discharge Disposition: Discharge to home or self care from Last 3 Months Allergies Active Allergy Reactions Criticality Noted Date Comments Sulfa (Sulfonamide Antibiotics) Rash Medium 07/2020 Medications aspirin 81 mg chewable tablet 1 tablet (81 mg total) daily Active atorvastatin (LIPITOR) 10 mg tablet 0 Active multivitamin tablet daily Active docosahexaenoic acid/epa (FISH OIL ORAL) Take by mouth Active tamsulosin (FLOMAX) 0.4 mg extended release capsule 1 capsule (0.4 mg total) daily Active acetaminophen (TYLENOL) 325 mg tablet Take 1 tablet (325 mg total) by mouth every 6 hours Active finasteride (PROSCAR) 5 mg tablet Take 1 tablet (5 mg total) by mouth daily 2 Active omeprazole (PriLOSEC) 20 mg capsule Take 1 capsule (20 mg total) by mouth as needed Active fluticasone propionate (FLONASE) 50 mcg/actuation nasal spray Administer 2 sprays into each nostril daily as needed Active magnesium gluconate (MAGONATE) 27.5 mg magne- sium (500 mg) tabletIndicatio ns:hypomagnesem ia Take 1 tablet (500 mg total) by mouth 2 (two) times a day Active CALCIUM ORAL Take 1,200 mg by mouth daily Active cholecalciferol , vitamin D3, (VITAMIN D3 ORAL) Take 50 mcg by mouth daily Active cyanocobalamin, vitamin B-12, 1,000 mcg tablet extended release Take 1,000 mcg by mouth daily Active Active Problems Problem Noted Date Diagnosed Date Peripheral vascular disease, unspecified 024 Assessment & Plan (02/28/2024 2:00 PM CDT): Lower extremities are warm well perfused with palpable distal pulses normal ABIs. Follow-up as needed. Assessment & Plan (01/17/2024 3:56 PM COGNOS ANALYST): Impression: Patient complains of symptoms of claudication to the right calf. Patient underwent a lower extremity arterial Doppler at an outside facility that reports normal ABIs to the right lower extremity and normal ABIs to the left but mildly decreased left TBI. Patient has palpable distal pulses to his lower extremities. He has no other concerns at this time. Plan: Recommend lower extremity arterial Doppler and follow-up in 4 weeks for re-evaluation. Other hyperlipidemia 05/27/2020 Assessment & Plan (10/23/2024 12:58 PM COGNOS ANALYST): Impression: Chronic and stable. Plan: Continue Lipitor Assessment & Plan (01/17/2024 3:53 PM COGNOS ANALYST): Impression: Chronic and controlled Plan: Continue Lipitor Assessment & Plan (10/13/2023 12:17 PM COGNOS ANALYST): Hyperlipidemia chronic and controlled. Continue Lipitor. Carotid stenosis, left 10/12/2016 Assessment & Plan (10/23/2024 12:20 PM COGNOS ANALYST): Impression: Patient is status post left carotid endarterectomy in 2014. He remains asymptomatic. Carotid duplex reveals patent bilateral carotid arteries. Plan: Continue ongoing risk factor modifications. -patient to follow-up in 1 year for re-evaluation with repeat carotid duplex. Assessment & Plan (02/28/2024 2:01 PM CDT): Currently being followed and will follow-up as scheduled in 1 year with carotid duplex. 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 He denies any symptoms suggestive of right upper extremity claudication. An 18mm HG difference is noted to the right brachial pressure on carotid duplex scan. Plan: No surgical interventions indicated at this time as patient remains asymptomatic. -patient to follow-up in 1 year for re-evaluation with repeat carotid duplex. Encouraged patient to make a sooner appointment if he develops any symptoms of claudication to the right upper extremity, numbness, tingling or ulcerations to the finger/hand. Patient voices understanding. Assessment & Plan (10/30/2023 11:32 AM COGNOS ANALYST): Patient asymptomatic. No workup and or intervention needed. Follow-up 1 year with carotid duplex. Assessment & Plan (10/13/2023 12:16 PM COGNOS ANALYST): Patient has known right subclavian occlusion previously asymptomatic. Lost to follow-up will obtain repeat carotid duplex follow-up 2 weeks. Resolved Problems Problem Noted Date Diagnosed Date Resolved Date Occlusion and stenosis of bi lateral carotid arteries 04/06/2016 10/23/2024 Assessment & Plan (10/30/2023 11:32 AM COGNOS ANALYST): Status post left carotid endarterectomy June 2015. Minimal recurrence stenosis asymptomatic continue anti-platelet therapy 1 year duplex Assessment & Plan (10/13/2023 12:17 PM COGNOS ANALYST): History of carotid stenosis status post left carotid endarterectomy. Lost to follow-up over the last several years. Continue anti-platelet therapy and obtain carotid duplex. Immunizations Immunization Administration Dates Next Due Influenza, Quadrivalent, Spl it, Preservative Free, Intramuscular 08/05/2018 Social History Tobacco Use Types Packs/Day Years Used Date Smoking Tobacco: Never Smokeless Tobacco: Never Tobacco Cessation:Counseling Given: Not Answered AUDIT-C Answer Date Recorded Q1: How often do you have a drink containing alc ohol? 2-4 times a month 04/08/2024 Q2: How many drinks containi ng alcohol do you have on a typical day when you are drinking? 1 or 2 04/08/2024 Q3: How often do you have si x or more drinks on one occasion? 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 Not on file Not on file Not on fi le Last Filed Vital Signs Vital Sign Reading Time Taken Comments Blood Pressure 129/67 10/22/2024 10:53 AM COGNOS ANALYST Pulse 64 10/22/2024 10:53 AM COGNOS ANALYST Temperature 36.2 C (97.2 F) 04/08/2024 10:56 AM CDT Respiratory Rate 16 04/08/2024 12:01 PM CDT Oxygen Saturation 99% 04/08/2024 12:01 PM CDT Inhaled Oxygen Concentration - - Weight 77.6 kg (171 lb) 10/22/2024 10:53 AM COGNOS ANALYST Height 185.4 cm (6' 1 ) 10/22/2024 10:53 AM COGNOS ANALYST Body Mass Index 22.56 10/22/2024 10:53 AM COGNOS ANALYST Plan of Treatment Not on file Goals Goal Patient Goal Type Associated Problems Recent Progress Patient-Stated? Author CCM Chronic Pain Care Plan Chronic Care Management No Jihan Horowitz V., RN Note: Problem: Chronic Pain Goals: 1. Minimize further functional decline 2. Maximize quality of life 3. Control pain Strategies: - Activity/exercise program recommendation - Conservative stepwise pain medicine strategy with multi-disciplinary approach - Recommend healthy lifestyle strategies and compensatory methods as needed Reduce the likelihood of falling Lifestyle Nikki Irvin RN Note: Below are four things you can do to prevent falls: Begin an exercise program to improve your leg strength & balance Ask your doctor or pharmacist to review your medicines Get annual eye check-ups & update your eyeglasses Make your home safer by: Removing clutter & tripping hazards Putting railings on all stairs & adding grab bars in the bathroom Having good lighting, especially on stairs Contact your local community or [facility] for information on exercise, fall prevention programs, or options for improving home safety. Procedures Procedure Name Priority Date/Time Associated Diagnosis Comments US CAROTIDS DUPLEX BILATERAL Schedule Routine, Read Routine (OP Routine) 10/22/2024 10:39 AM COGNOS ANALYST Bilateral carotid artery stenosis from Last 3 Months Results * US Carotids Duplex Bilateral (10/22/2024 10:39 AM COGNOS ANALYST) Anatomical Region Laterality Modality Vascular Bilateral Ultrasound 10/22/2024 Narrative 10/28/2024 7:27 AM COGNOS ANALYST [employer] Job ID: [id number] [employer] Document ID: [id number] Dictated date/time: [id number] CAROTID DUPLEX REASON FOR EXAM Carotid stenosis. COMMENTS ON THE RIGHT Peak systolic velocity CCA 91, ICA of 75. Smooth heterogenous plaques in proximal ICA. ECA velocity 177. Antegrade flow noted. Vertebral artery velocity of 50. COMMENTS ON THE LEFT Peak systolic velocity of CCA of 68, ICA of 97. Endarterectomy site widely. ECA velocity 120. Antegrade flow noted. Vertebral artery velocity 160. IMPRESSION 1. Less than 50% stenosis right internal carotid artery with normal study on the left. 2. Antegrade flow noted bilateral vertebral arteries. Job ID/Internal Job ID: [id number] Torin Brady MD IMG US PROCEDURES Final Re sult from Last 3 Months Insurance [employer]IC [employer]IC[employer] [place] [address] Advance Directives For more information, please contact: [phone] Documents on File Type Date Recorded Patient Custom Shoemaker Expl anation ADVANCE DIRECTIVE 07/09/2015 12:00 AM [employer] Care Teams Fire Tower Keeper Relationship Specialty Start Date End Date Radha Alvarez MD PCP - General Family Medicine 01/23/24
--- OUTSIDE RECORDS SUMMARY | 2024-12-30 08:55 | XMS_ITS | Clinical Summary ---
Author Organization [facility] Address [address] [place] [address] Care Team Providers Care Core Manager Name Role Phone Unavailable Primary Care Provider Unavailabl e Immunizations Immunization Administration Dates Next Due Covid-19, Mrna, Lnp-s, Pf, 30 Mcg/0.3 Ml Dose (P fizer) 09/09/2021 Social History Tobacco Use Types Packs/Day Years Used Date Smoking Tobacco: Never Assessed Sex and Gender Information Value Date Recorded Sex Assigned at Not on file Legal Sex Male 3:38 PM CDT Gender Identity Not on file Sexual Orientation Not on file Plan of Treatment Health Maintenance Due Date Last Done Comments Hepatitis C Virus (HCV) Screening 1960 TdaP Immunization 1960 Colonoscopy 2003 Colorectal Cancer Screening 2003 Cologuard 2008 Immunochemical Fecal Occult Blood 2008 Pneumococcal Immunization (5 0+ years) (1 of 1 - PCV) 2008 Zoster Immunization (1 of 2) 2008 PSA Discussion 2013 Influenza Immunization (#1) 2024 08/05/2018 SARS-COV-2 Immunization ( season) 2024 09/09/2021, 02/11/2021, 01/21/2021 Respiratory Syncytial Virus (RSV) Immunization (Adult) (1 - 1-dose 75+ series) 2033 Hepatitis B Immunization Aged Out No longer eligible based on patient's age to complete this topic Meningococcal Immunization (ACWY) Aged Out No longer eligible b ased on patient's age to complete this topic Rotavirus Immunization Aged Out No lo nger eligible based on patient's age to complete this topic
--- OUTSIDE RECORDS SUMMARY | 2024-12-30 08:55 | XMS_ITS | Encounter Summary ---
Author Organization [facility] Healthcare Address [address] [place] [address] Care Team Providers Care Table Maker Name Role Phone Ghulam Monreal Primary Care Provider + Radha Alvarez MD Primary Care Provider + Encounter Details Date Type Department Care Team (Late st Contact Info) Description 06/15/2022 Telephone [facility] [address], [address] [place] [phone] Gwen Ybarra, MARC Social History Tobacco Use Types Packs/Day Years Used Date Smoking Tobacco: Never Smokeless Tobacco: Never AUDIT-C Answer Date Recorded Q1: How often do you have a drink containing alc ohol? Monthly or less 06/15/2022 Q2: How many drinks containi ng alcohol do you have on a typical day when you are drinking? 5 or 6 06/15/2022 Q3: How often do you have si x or more drinks on one occasion? 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 Monthly or less 06/15/2022 5:38 PM Lynette Funez CMA Q2: How many drinks containing alcohol do you have on a typical day when you are drinking? 5 or 6 06/15/2022 5:38 PM Kareen Funez CMA Q3: How often do you have six or more drinks on one occasion? Never 06/15/2022 5:38 PM Lynette Funez CMA documented as of this encounter Plan of Treatment Not on file documented as of this encounter Visit Diagnoses Not on filedocumented in this encounter Care Teams Table Maker Relationship Specialty Start Date End Date Ghulam Monreal PA [address] [place] [id number] PCP - General Physician Station Air Traffic Control Specialist 04/28/22 01/22/24 Radha Alvarez MD [address] [place] [id number] PCP - General Family Medicine 01/23/24 documented as of this encounter
--- OUTSIDE RECORDS SUMMARY | 2024-12-30 08:55 | XMS_ITS | Clinical Summary ---
Author Organization [facility] at the [facility] Office Center Address [address] [place] [address] Care Team Providers Care Parts Order And Stock Clerk Name Role Phone Radha Alvarez MD Primary Care Provider + Allergies Active Allergy Reactions Criticality Noted Date [...] needed. Assessment & Plan (01/17/2024 3:56 PM DRIVER OPERATOR): Impression: Patient complains of symptoms of claudication [...] 05/27/2020 Assessment & Plan (10/23/2024 12:58 PM DRIVER OPERATOR): Impression: Chronic and stable. Plan: Continue Lipitor Assessment & Plan (01/17/2024 3:53 PM DRIVER OPERATOR): Impression: Chronic and controlled Plan: Continue Lipitor Assessment & Plan (10/13/2023 12:17 PM DRIVER OPERATOR): Hyperlipidemia chronic and controlled. Continue Lipitor. Carotid stenosis, left 10/12/2016 Assessment & Plan (10/23/2024 12:20 PM DRIVER OPERATOR): Impression: Patient is status post left carotid [...] 10/12/2016 Assessment & Plan (10/23/2024 12:22 PM DRIVER OPERATOR): Impression: Patient has a known right subclavian [...] understanding. Assessment & Plan (10/30/2023 11:32 AM DRIVER OPERATOR): Patient asymptomatic. No workup and or intervention needed. Follow-up 1 year with carotid duplex. Assessment & Plan (10/13/2023 12:16 PM DRIVER OPERATOR): Patient has known right subclavian occlusion previously asymptomatic. Lost to follow-up will obtain repeat carotid duplex follow-up 2 weeks. Resolved Problems Problem Noted Date Diagnosed Date Resolved Date Occlusion and stenosis of bi lateral carotid arteries 04/06/2016 10/23/2024 Assessment & Plan (10/30/2023 11:32 AM DRIVER OPERATOR): Status post left carotid endarterectomy June 2015. Minimal recurrence stenosis asymptomatic continue anti-platelet therapy 1 year duplex Assessment & Plan (10/13/2023 12:17 PM DRIVER OPERATOR): History of carotid stenosis status post left carotid endarterectomy. Lost to follow-up over the last several years. Continue anti-platelet therapy and obtain carotid duplex. Encounters Date Type Department Care Team Description 10/22/2024 11:00 AM DRIVER OPERATOR Office Visit [facility] [address] [id number] Zoey Ramos NP Carotid stenosis, left (Primary Dx); Innominate artery stenosis (CMS/HCC) (HCC); Other hyperlipidemia 10/22/2024 9:55 AM DRIVER OPERATOR - 10/22/2024 11:59 PM DRIVER OPERATOR Hospital Encounter [facility] Building 2 Vascular [address] [facility] [address] [place] [address] Bilateral carotid artery stenosis Discharge Disposition: Discharge to home or self care 10/22/2024 Orders Only [facility] [address] [facility] [address] [place] [address] Torin Brady MD Bilateral carotid artery stenosis (Primary Dx); Subclavian artery occlusive syndrome from Last 3 Months Immunizations Immunization Administration Dates Next Due Influenza, Quadrivalent, Spl it, Preservative Free, Intramuscular 08/05/2018 Surgical History Surgery Date Site/Laterality Comments CAROTID ENDARTERECTOMY 07/06/2015 Left CERVICAL FUSION 11/12/1996 - 11/11/1997 TONSILLECTOMY 11/12/1959 - 11/11/1960 POSTERIOR CRUCIATE LIGAMENT REPAIR 11/12/1996 - 11/11/1997 Due to tornage HEMORRHOID SURGERY 11/12/1989 - 11/11/1990 Medical History Medical History Date Comments Hypercholesterolemia Carotid artery disease (HCC) Cervical disc disease Stroke (HCC) IN EYE Chronic pain disorder Low back pain Family History Medical History Relation Name Comments Cancer Brother Heart disease Father Stroke Father Cancer Mother Early Mother age 67 Hyperlipidemia Other Heart disease Paternal Grandfather Cancer Paternal Grandmother Cancer Sister Relation Name Status Comments Brother Father Mother Other Paternal Grandfather Paternal Grandmother Sister Social History Tobacco Use Types Packs/Day Years [...] on file Legal Sex Male 9:56 AM DRIVER OPERATOR Gender Identity Not on file Sexual Orientation Not on file 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 on file Not on file Not on fi le Obstetrics History Last Filed Vital Signs Vital Sign Reading Time Taken Comments Blood Pressure 129/67 10/22/2024 10:53 AM DRIVER OPERATOR Pulse 64 10/22/2024 10:53 AM DRIVER OPERATOR Temperature 36.2 C (97.2 F) 04/08/2024 10:56 AM CDT Respiratory Rate 16 04/08/2024 12:01 PM CDT Oxygen Saturation 99% 04/08/2024 12:01 PM CDT Inhaled Oxygen Concentration - - Weight 77.6 kg (171 lb) 10/22/2024 10:53 AM DRIVER OPERATOR Height 185.4 cm (6' 1 ) 10/22/2024 10:53 AM DRIVER OPERATOR Body Mass Index 22.56 10/22/2024 10:53 AM DRIVER OPERATOR Plan of Treatment Health Maintenance Due Date Last Done Comments Colon Cancer Screening-Colonoscopy 1960 Depression Screening 1960 Hepatitis C Screening 1958 Prostate Cancer Screening-PSA 1958 DTaP/Tdap/Td Vaccine (1 - Tdap) 1969 Hepatitis B Screening 1976 Pneumococcal vaccine 65+ (1 of 1 - PCV) 2008 Zoster Vaccine (1 of 2) 2008 Well Visit 65+ 2023 Covid-19 Vaccine (2 - 2023-2 5 season) 2024 09/09/2021 Influenza Vaccine (#1) 2024 08/05/2018 Fall Risk Assessment 04/08/2025 04/08/2024, 12/26/2022, 11/29/2022, Additional history exists Goals Goal Patient Goal Type Associated Problems Recent Progress Patient-Stated? Author CCM Chronic Pain Care Plan Chronic Care Management No Jihan Horowitz V. RN Note: Problem: Chronic Pain Goals: 1. Minimize further functional decline 2. Maximize quality of life 3. Control pain Strategies: - Activity/exercise program recommendation - Conservative stepwise pain medicine strategy with multi-disciplinary approach - Recommend healthy lifestyle strategies and compensatory methods as needed Reduce the likelihood of falling Lifestyle No Nikki Carrera, MARC Note: Below are four things you can [...] on stairs Contact your local community or senior center for information on exercise, fall prevention programs, or options for improving home safety. Procedures Procedure Name Priority Date/Time Associated Diagnosis Comments US CAROTIDS DUPLEX BILATERAL Schedule Routine, Read Routine (OP Routine) 10/22/2024 10:39 AM DRIVER OPERATOR Bilateral carotid artery stenosis from Last 3 Months Results * US Carotids Duplex Bilateral (10/22/2024 10:39 AM DRIVER OPERATOR) Anatomical Region Laterality Modality Vascular Bilateral Ultrasound 10/22/2024 Narrative 10/28/2024 7:27 AM DRIVER OPERATOR [employer] Job ID: [id number] [employer] Document ID: [id number] Dictated date/time: [id number] CAROTID DUPLEX REASON FOR EXAM Carotid stenosis. [...] bilateral vertebral arteries. Job ID/Internal Job ID: [id number] Torin Brady MD [facility] PROCEDURES Final Re sult from Last 3 Months Insurance MEDICARE COMMERCIAL GENERIC MEDICARE [place] MEDICARE SUPPLEMENT Advance Directives For more information, please contact: [phone] Documents on File Type Date Recorded Patient Product Controller Expl anation ADVANCE DIRECTIVE 07/09/2015 12:00 AM BETH Hoskins OF AIRCRAFT MAINTENANCE TECHNICIAN FINANCIAL/MEDICAL Care Teams Parts Order And Stock Clerk Relationship Specialty Start Date End Date Radha Alvarez MD PCP - General Family Medicine 01/23/24
[2024-12-30 16:44] LABS: Alanine Aminotransferase 33 U/L (6-50); Albumin Level 3.9 g/dL (3.5-5.1); Alkaline Phosphatase 91 U/L (38-126); Anion Gap 6 mmol/L (4-12); Aspartate Amino Transferase 44 U/L (17-59); Blood Urea Nitrogen 21 mg/dL (9-20); Carbon Dioxide 30 mmol/L (22-30); Chloride 105 mmol/L (98-107); Cholesterol 126 mg/dL (0-200); Estimated Glomerular Filt Rate > 60; Glucose 86 mg/dL (65-110); HDL Direct 32 mg/dL; Potassium 4.1 mmol/L (3.4-5.0); Sodium 141 mmol/L (137-145); Triglycerides 89 mg/dL (<150)
[2024-12-30 16:55] LABS: LDL Cholesterol Direct 76 mg/dL
[2024-12-30 17:14] LABS: Prostate Specific Antigen 0.7 ng/mL (< OR = 4.0)
== END 2024-12-30 08:51 | disposition home or self-care (01) ==
LOC: ANHGOSHLAB 08:51
PROVIDERS: PCP Family Medicine; Visit Provider Family Medicine
DX: I70.0 Atherosclerosis of aorta (principal); Z12.5 Encounter for screening for malignant neoplasm of prostate
CPT/HCPCS: 36415; 80053; 80061; 84153; G0103

== ENCOUNTER 2025-02-13 10:51 | Outpatient (CLI) | payer MEDICARE, SELFPAY ==
--- NOTE | ~2025-02-13 | CT_ITS ---
EXAMINATION: CT sinus wo con DATE: 02/13/2025 11:04 INDICATION: Nasal congestion. Sinusitis. TECHNIQUE: Computed tomography (CT) of the paranasal sinuses was performed without intravenous contra st. The dose-length product was 424.25 mGy-cm. Automated exposure control and iterative reconstructio n technique were employed. COMPARISON: CT dated 09/09/2023 FINDINGS: There is mucosal thickening of the maxillary, ethmoid and to a lesser degree right sphenoid sinus. There is a mucous retention cyst of the left maxillary sinus. Mastoids are pneumatized. No si gnificant nasal septal deviation. Ostiomeatal units are patent. Mastoids are pneumatized. IMPRESSION: 1. Moderate sinus disease. Reviewed, dictated and finalized at location A. IMPRESSION: 1. Moderate sinus disease.
== END 2025-02-13 10:52 | disposition home or self-care (01) ==
LOC: GOSHIMG 10:51
PROVIDERS: PCP Otolaryngology Otolaryngology/Facial Plastic Surgery; Visit Provider Otolaryngology Otolaryngology/Facial Plastic Surgery
DX: R09.81 Nasal congestion (principal); J34.3 Hypertrophy of nasal turbinates; J31.0 Chronic rhinitis
CPT/HCPCS: 70486

== ENCOUNTER 2025-06-16 09:54 | Outpatient (CLI) | payer MEDICARE, SELFPAY ==
--- NOTE | ~2025-06-16 | XR_ITS ---
EXAMINATION: XR sacrum coccyx min 2V DATE: 06/16/2025 10:19 INDICATION: Sacrococcygeal disorder TECHNIQUE: Frontal, angled frontal and lateral views of the sacrum and coccyx were obtained. COMPARISON: None. FINDINGS: Bone alignment is normal. On the lateral projection there appears to be a minimally displaced fractur e extending across the fifth sacral segment. No other fractures identified. Mild bilateral acromiocla vicular osteoarthritis. Moderate right and mild left hip osteoarthritis. IMPRESSION: 1. Likely minimally displaced fracture extending across the S5 segment. Reviewed, dictated and finalized at location A.
== END 2025-06-16 09:55 | disposition home or self-care (01) ==
PROVIDERS: PCP Family Medicine; Visit Provider Family Medicine
DX: M53.3 Sacrococcygeal disorders, not elsewhere classified (principal)
CPT/HCPCS: 72220

== ENCOUNTER 2025-10-12 10:31 | Outpatient (CLI) | payer MEDICARE, SELFPAY ==
--- OUTSIDE RECORDS SUMMARY | 2025-10-12 11:58 | XMS_ITS | Encounter Summary ---
Author Organization 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
--- OUTSIDE RECORDS SUMMARY | 2025-10-12 11:58 | XMS_ITS | Clinical Summary ---
Author Organization [facility] Address [address] [place] [address] Care Team Providers Care Cylinder Machine Operator Pulp Drier Name Role Phone Unavailable Primary Care Provider [...] Virus (HCV) Screening 1960 TdaP Immunization 1958 Cologuard 2003 Colonoscopy 2003 Colorectal Cancer Screening 2003 Immunochemical Fecal Occult Blood 2003 Pneumococcal Immunization (5 0+ years) (1 of 1 - PCV) 2008 Zoster Immunization (1 of 2) 2008 Influenza Immunization (#1) 2025 08/05/2018 SARS-COV-2 Immunization ( season) 2025 09/09/2021, 02/11/2021, 01/21/2021 Respiratory Syncytial Virus (RSV) Immunization (Adult) (1 - 1-dose 75+ series) 2033 Hepatitis B Immunization Aged Out No longer eligible based on patient's age to complete this topic Human Papillomavirus (HPV) Immunization Aged Out No longer eligible b ased on patient's age to complete this topic Meningococcal Immunization (ACWY) Aged Out No longer eligible b ased on patient's age to complete this topic Rotavirus Immunization Aged Out No lo nger eligible based on patient's age to complete this topic
--- OUTSIDE RECORDS SUMMARY | 2025-10-12 11:58 | XMS_ITS | Clinical Summary ---
Author Organization [facility] Office Center Address [address] [place] [address] Care Team Providers Care Sales Representative Facility Services Name Role Phone Radha Alvarez MD Primary [...] needed. Assessment & Plan (01/17/2024 3:56 PM ORTHOTICS ASSISTANT): Impression: Patient complains of symptoms of claudication [...] 05/27/2020 Assessment & Plan (10/23/2024 12:58 PM ORTHOTICS ASSISTANT): Impression: Chronic and stable. Plan: Continue Lipitor Assessment & Plan (01/17/2024 3:53 PM ORTHOTICS ASSISTANT): Impression: Chronic and controlled Plan: Continue Lipitor Assessment & Plan (10/13/2023 12:17 PM ORTHOTICS ASSISTANT): Hyperlipidemia chronic and controlled. Continue Lipitor. Carotid stenosis, left 10/12/2016 Assessment & Plan (10/23/2024 12:20 PM ORTHOTICS ASSISTANT): Impression: Patient is status post left carotid endarterectomy in 2014. He remains asymptomatic. Carotid duplex reveals patent bilateral carotid arteries. Plan: Continue ongoing risk factor modifications. -patient to follow-up in 1 year for re-evaluation with repeat carotid duplex. Assessment & Plan (02/28/2024 2:01 PM CDT): Currently being followed and will follow-up as scheduled in 1 year with carotid duplex. 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 Assessment & Plan (10/30/2023 11:32 AM ORTHOTICS ASSISTANT): Patient asymptomatic. No workup and or intervention needed. Follow-up 1 year with carotid duplex. Assessment & Plan (10/13/2023 12:16 PM ORTHOTICS ASSISTANT): Patient has known right subclavian occlusion previously asymptomatic. Lost to follow-up will obtain repeat carotid duplex follow-up 2 weeks. Resolved Problems Problem Noted Date Diagnosed Date Resolved Date Occlusion and stenosis of bi lateral carotid arteries 04/06/2016 10/23/2024 Assessment & Plan (10/30/2023 11:32 AM ORTHOTICS ASSISTANT): Status post left carotid endarterectomy June 2015. 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 Not on file Not on fi le Last Filed Vital Signs Vital Sign Reading Time Taken Comments Blood Pressure 129/67 10/22/2024 10:53 AM ORTHOTICS ASSISTANT Pulse 64 10/22/2024 10:53 AM ORTHOTICS ASSISTANT Temperature 36.2 C (97.2 F) 04/08/2024 10:56 AM CDT Respiratory Rate 16 04/08/2024 12:01 PM CDT Oxygen Saturation 99% 04/08/2024 12:01 PM CDT Inhaled Oxygen Concentration - - Weight 77.6 kg (171 lb) 10/22/2024 10:53 AM ORTHOTICS ASSISTANT Height 185.4 cm (6' 1) 10/22/2024 10:53 AM ORTHOTICS ASSISTANT Body Mass Index 22.56 10/22/2024 10:53 AM ORTHOTICS ASSISTANT Plan of Treatment Health Maintenance Due Date Last Done Comments Colon Cancer Screening-Colonoscopy 1958 Depression Screening 1958 Hepatitis C Screening 1958 Prostate Cancer Screening-PSA 1958 DTaP/Tdap/Td Vaccine (1 - Tdap) 1969 Hepatitis B Screening 1976 Pneumococcal vaccine 65+ (1 of 1 - PCV) 2008 Zoster Vaccine (1 of 2) 2008 Well Visit 65+ 2023 Fall Risk Assessment 04/08/2025 04/08/2024, 12/26/2022, 11/29/2022, Additional history exists Covid-19 Vaccine (2 - 2024-2 6 season) 2025 09/09/2021 Influenza Vaccine (#1) 2025 08/05/2018 Goals Goal Patient Goal Type Associated Problems [...] the likelihood of falling Lifestyle No Nikki Carrera RN Note: Below are four things you [...] programs, or options for improving home safety. Insurance MEDICARE COMMERCIAL GENERIC MEDICARE [place] MEDICARE SUPPLEMENT Advance Directives For more information, please contact: [phone] Documents on File Type Date Recorded Patient Dean Of Graduate Studies Expl anation ADVANCE DIRECTIVE 07/09/2015 12:00 AM BETH R OF VP OF PRODUCT FINANCIAL/MEDICAL Care Teams Sales Representative Facility Services Relationship Specialty Start Date End Date Radha Alvarez MD PCP - General Family Medicine 01/23/24
[2025-10-16 20:07] LABS: Pneumo Ab Type 17 (17F)* 3.2 ug/mL (>1.3); Pneumo Ab Type 2* 1.2 ug/mL (>1.3); Pneumo Ab Type 20* 2.6 ug/mL (>1.3); Pneumo Ab Type 22 (22F)* 4.7 ug/mL (>1.3); Pneumo Ab Type 34 (10A)* 18.9 ug/mL (>1.3); Pneumo Ab Type 43 (11A)* 5.0 ug/mL (>1.3); Pneumo Ab Type 54 (15B)* 5.3 ug/mL (>1.3); Pneumo Ab Type 70 (33F)* 4.1 ug/mL (>1.3)
== END 2025-10-12 10:32 | disposition home or self-care (01) ==
LOC: ANHGOSHLAB 10:34
PROVIDERS: PCP Family Medicine; Visit Provider Otolaryngology Otolaryngology/Facial Plastic Surgery
DX: J32.9 Chronic sinusitis, unspecified (principal)
CPT/HCPCS: 86581